=== PATIENT | female | born 1940 | race Caucasian/White ===

== ENCOUNTER 2022-07-18 11:42 | Emergency (ER) | payer BC, MEDICARE ==
[2022-07-18] MEDS ORDERED: Lidocaine 1% 20 ML MDV INFILT ONE (11:43)
[2022-07-18] MEDS ORDERED: Diphtheria,Pertussis(Acell),Tetanus Vaccine 0.5 ML Syringe IM ONE (12:30)
== END 2022-07-18 13:10 | disposition home or self-care (01) ==
LOC: FB.ED 11:42
DX: S81.851A Open bite, right lower leg, initial encounter (principal); Z23 Encounter for immunization; W54.0XXA Bitten by dog, initial encounter
CPT/HCPCS: 12001; 90471; 90715; 99283-25

== ENCOUNTER 2022-07-19 10:20 | Emergency (ER) | payer MEDICARE | END 2022-07-19 11:20 | disposition home or self-care (01) | LOC: FB.ED 10:20 | DX: S71.151A Open bite, right thigh, initial encounter (principal); S61.451A Open bite of right hand, initial encounter; E66.9 Obesity, unspecified; Z68.36 Body mass index [BMI] 36.0-36.9, adult; W54.0XXA Bitten by dog, initial encounter | CPT/HCPCS: 99283 ==